=== PATIENT | male | born 1950 | race Hispanic/Latino ===

== ENCOUNTER 2024-01-20 05:43 | Day surgery (SDC) | payer OTHER ==
[2024-01-16 13:09] LABS: BASOPHILS # (AUTO) 0.02 K/uL (0.00-0.20); BASOPHILS % (AUTO) 0.4 % (0.0-5.0); EOSINOPHILS # (AUTO) 0.15 K/uL (0.00-0.70); EOSINOPHILS % (AUTO) 2.7 % (0.0-8.0); HEMATOCRIT 53.2 % (42-54); IMMATURE GRANULOCYTE ABSOLUTE 0.01 K/uL (0-1); LYMPHOCYTES # (AUTO) 1.9 K/uL (1.0-4.8); LYMPHOCYTES % (AUTO) 34.5 % (21.0-51.0); MEAN CORPUSCULAR HEMOGLOBIN 32.5 pg (27.0-33.0); MEAN CORPUSCULAR HGB CONC 32.5 g/dL (32.0-36.0); MEAN CORPUSCULAR VOLUME 99.8 fL (79-99); MONOCYTES # (AUTO) 0.7 K/uL (0.1-1.0); MONOCYTES % (AUTO) 12.2 % (3.0-13.0); NEUTROPHILS # (AUTO) 2.8 K/uL (1.8-7.7); PLATELET COUNT (AUTO) 114 K/uL (130-400); RED BLOOD CELL COUNT(AUTO) 5.33 MIL/uL (4.50-6.20); RED CELL DISTRIBUTION WIDTH 13.7 % (11.0-15.5); WHITE BLOOD COUNT (AUTO) 5.6 K/uL (4.8-10.8)
[2024-01-16 13:15] LABS: CREATININE 0.9 mg/dL (0.5-1.3); POTASSIUM 4.9 mmol/L (3.5-5.1)
[2024-01-16 13:18] LABS: INR 1.01 (0.85-1.15); PROTHROMBIN TIME 11.9 SEC (9.6-11.6)
[2024-01-16 13:19] LABS: PARTIAL THROMBOPLASTIN TIME 33.6 SEC (26.3-35.5)
[2024-01-16 13:32] VITALS: BP 159/79; PULSE 61; RESP 17
[2024-01-16 13:33] LABS: B-TYPE NATRIURETIC PEPTIDE 686 pg/mL (0-100)
[2024-01-20] VITALS (11 sets, daily range): BP systolic 108–144; BP diastolic 40–76; PULSE 43–65; RESP 10–18
[~2024-01-20] VITALS: Ht 167.6 cm; Wt 73.8 kg
[~2024-01-20 05:43] MED LIST: AMLO-257 PO; APIX5TAB PO; ASPI-1005 PO; LEVO112C4 PO; LOSA100T59 PO; METO-408 PO; ROSU40TA70 PO
[2024-01-20] MEDS: 0.9%NACL 1000ML 1,000 ML IV ONE (06:47)
[2024-01-20] MEDS ORDERED: LIDOCAINE HCL 400MG/20ML VIAL ONE (07:27)
[2024-01-20] MEDS ORDERED: HEPARIN 10,000 UNIT/10ML (1,000 UNIT/ML) VIAL ONE (07:28)
[2024-01-20] MEDS ORDERED: NICARDIPINE 25MG INJ IV ONE (07:28)
[2024-01-20] MEDS ORDERED: FENTANYL CITRATE PF 50 MCG/1 ML 2ML VIAL ONE (07:28)
[2024-01-20] MEDS ORDERED: MIDAZOLAM HCL 1 MG/ML 2ML VIAL ONE (07:28)
[2024-01-20] MEDS ORDERED: IODIXANOL 320 MG/ML 100 ML VIAL ONE (07:28)
[2024-01-20] MEDS ORDERED: NITROGLYCERIN 50MG VIAL ONE (07:29)
[2024-01-20] MEDS ORDERED: CLOPIDOGREL 300MG TAB ONE (08:24)
[2024-01-20] MEDS ORDERED: ONDANSETRON 4MG INJ ONE (08:48)
[2024-01-20] MEDS ORDERED: FAMOTIDINE 20MG VIAL IV ONE (08:49)
[2024-01-20] MEDS: 0.9%NACL 1000ML 1,000 ML IV SCH (09:10)
[2024-01-20] MEDS ORDERED: GLUCAGON 1MG KIT 1 MG ML IM PRN (09:30)
[2024-01-20] MEDS ORDERED: DEXTROSE 50%-WATER 50 ML DISP.SYRIN IV PRN (09:30)
== END 2024-01-20 13:45 | disposition home or self-care (01) ==
LOC: DAH 05:43
PROVIDERS: ATTEND Internal Medicine Cardiovascular Disease
DX: I70.248 Atherosclerosis of native arteries of left leg with ulceration of other part of lower leg (principal); L97.828 Non-pressure chronic ulcer of other part of left lower leg with other specified severity; I48.0 Paroxysmal atrial fibrillation; I10 Essential (primary) hypertension; E78.5 Hyperlipidemia, unspecified; I25.10 Atherosclerotic heart disease of native coronary artery without angina pectoris; E03.9 Hypothyroidism, unspecified; Z79.899 Other long term (current) drug therapy; Z98.890 Other specified postprocedural states; Z79.01 Long term (current) use of anticoagulants; Z95.1 Presence of aortocoronary bypass graft; Z79.82 Long term (current) use of aspirin; Z82.49 Family history of ischemic heart disease and other diseases of the circulatory system; Z72.89 Other problems related to lifestyle
CPT/HCPCS: 80048; 83880; 85025; 85610; 85730; 36415; 71045; 93005; 75716; 36246; 85347; C1887; C1894 ×2; C1769 ×5; C1760; C1893; J3490 ×4; J3010; J7030; J1644 ×3; J2250; J2405; Q9967; A4215; A6402; A4222; A4221; A4663; A4216; A4606; A4223 ×3; A4335 ×2; 36247; 96360; 96361; 99156; 99157